=== PATIENT | male | born 1995 | race African-American/Black ===

== ENCOUNTER 2023-05-25 18:18 | Emergency (ER) | payer SELFPAY ==
--- NOTE | ~2023-05-25 | XR_ITS ---
XR foot LT min 3V 05/25/2023 18:52 Indication: Left foot pain Procedure: 3 views left foot Comparison: No prior studies for comparison. Findings: There is a nondisplaced avulsion fracture medial base first distal phalanx. There is osteoa rthritis of the first MTP joint with adjacent loose body medially. Mild soft tissue swelling at the M TP joint. Lisfranc joint intact. Impression: 1: Nondisplaced fracture medial base left first distal phalanx. Reviewed, dictated and finalized at location [facility]. [facility] Impression: 1: Nondisplaced fracture medial base left first distal phalanx.
[2023-05-25 18:38] VITALS: BP 115/71; PULSE 75; RESP 18; TEMP 37.3; O2SAT 100
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
[2023-05-25] MEDS: IBUPROFEN 600 MG TABLET PO (19:59)
== END 2023-05-25 20:09 | disposition home or self-care (01) ==
PROVIDERS: Emergency Provider Physician Assistant
DX: S92.425A Nondisplaced fracture of distal phalanx of left great toe, initial encounter for closed fracture (principal); W23.0XXA Caught, crushed, jammed, or pinched between moving objects, initial encounter
CPT/HCPCS: 73630; 99284; A9270

== ENCOUNTER 2023-10-09 02:01 | Emergency (ER) | payer SELFPAY ==
[2023-10-09 02:05] VITALS: BP 118/76; PULSE 78; RESP 18; TEMP 36.4; O2SAT 100
--- NOTE | 2023-10-09 02:07 | ED.GENADULT ---
HPI - General Adult General Chief complaint: Unspecified Stated complaint: ate an ediable and feels funny Time Seen by Provider: 10/09/23 02:04 History of Present Illness HPI narrative: This is a 28-year-old male presenting for marijuana intoxication. Patient took an edible THC candy. Now he feels nervous and paranoid. He feels like he has tingling in his legs. No other complaints. Patient has taken his dose of marijuana before. Denies other drug use. No SI/HI Related Data Allergies Allergy/AdvReac Type Severity Reaction Status Date / Time No Known Allergies Allergy Verified 05/25/23 19:54 [facility] Past Medical History Medical History (Updated 10/09/23 @ 02:10 by Paul Cho MD) No active medical problems Social History Social History (Updated 05/25/23 @ 19:59 by Angela Lewis PA-C) Substance use: never Exam Narrative: APPEARANCE: Patient appears nervous Head: atraumatic. EYES: EOMI, NOSE: Atraumatic NECK: Trachea midline RESPIRATORY: No increased rate of breathing, ctab CARDIOVASCULAR: RRR, ABDOMINAL: Non-distended MUSCULOSKELETAl: No obvious deformities NEURO: Alert. Moving 4/4 extremities SKIN:: Warm, dry. Normal color PSYCHIATRIC: Normal affect Medical Decision Making MDM Narrative Medical decision making narrative: -Course: 28-year-old male presenting for THC intoxication. He is resting comfortably in bed. He is nervous he is no psychosis. No SI/HI. Patient able to hold conversation and seems of right mind. Patient discharged. Discharge Plan Discharge Clinical Impression: Mild tetrahydrocannabinol (THC) abuse Patient Disposition: Home, Self-Care Condition: Stable Instructions: Antibiotic Form, Cannabis Use Disorder (ED) Additional Instructions: Please refrain from using marijuana in the future as you seem to not tolerate it very well. Please follow-up your primary care physician. return if you develop thoughts of harming herself or others. Prescriptions: No Action hydrocodone-acetaminophen 5-325 mg tablet 1 tablet PO Q8H PRN (Reason: pain) Qty: 14 0RF Follow-up/Referrals: PHYSICIAN,ELECTRONICS DESIGN ENGINEER [Primary Care Provider] -
== END 2023-10-09 02:20 | disposition home or self-care (01) ==
LOC: ANHED 02:18
PROVIDERS: Emergency Provider Emergency Medicine
DX: F12.129 Cannabis abuse with intoxication, unspecified (principal)
CPT/HCPCS: 99281